=== PATIENT | male | born 1985 | race Two or more races ===

== ENCOUNTER 2021-10-14 22:36 | Emergency (ER) | payer SELFPAY ==
[2021-10-14 23:33] LABS: HEMOGLOBIN 15.6 gm/dl (14.0-17.5); RED BLOOD COUNT 5.07 M/UL (4.20-5.50); WHITE BLOOD COUNT 9.2 K/UL (4.5-11.0)
[2021-10-14 23:54] LABS: BUN/CREATININE RATIO 21 (0-10)
[2021-10-15] MEDS ORDERED: REGLAN10 MG PO (01:13)
== END 2021-10-15 01:30 | disposition home or self-care (01) ==
LOC: ER1 22:36
PROVIDERS: Emergency Medicine
DX: R51.9 Headache, unspecified (principal); F41.9 Anxiety disorder, unspecified
CPT/HCPCS: 80053; 81001; 83690; 85025; 93005; 99284